=== PATIENT | female | born 1975 | race Caucasian/White ===

== ENCOUNTER 2017-11-17 11:54 | Emergency (ER) | payer OTHER ==
[~2017-11-17] VITALS: Ht 170.2 cm; Wt 61.2 kg
[2017-11-17 12:00] VITALS: BP 133/82
--- NOTE | 2017-11-17 12:30 | NUR ---
CALLED TO ROOM IN, NO ANSWER
--- NOTE | 2017-11-17 13:00 | NUR ---
CALLED TO ROOM IN, NO ANSWER
--- NOTE | 2017-11-17 13:25 | NUR ---
CALLED TO ROOM IN, NO ANSWER
== END 2017-11-17 15:23 | disposition left against medical advice (07) ==
LOC: ER 12:00
DX: Z53.21 Procedure and treatment not carried out due to patient leaving prior to being seen by health care provider (principal)
CPT/HCPCS: A4606; Z7610

== ENCOUNTER 2018-04-20 23:30 | Emergency (ER) | payer OTHER ==
--- NOTE | 2018-04-21 00:39 | NUR ---
CALLED FOR TRIAGE; NOT IN LOBBY OR OUTSIDE
--- NOTE | 2018-04-21 00:52 | NUR ---
CALLED AGAIN; NO ANSWER
--- NOTE | 2018-04-21 00:53 | NUR ---
INFORMED BY ADMITTING "PT LEFT"
== END 2018-04-21 00:56 | disposition left against medical advice (07) ==
LOC: ER 23:32
DX: Z53.21 Procedure and treatment not carried out due to patient leaving prior to being seen by health care provider (principal); R06.02 Shortness of breath

== ENCOUNTER 2018-07-10 12:53 | Emergency (ER) | payer OTHER ==
[~2018-07-10] VITALS: Ht 170.2 cm; Wt 56.3 kg
--- NOTE | 2018-07-10 13:00 | NUR ---
PT BIB SELF C/O SORETHROAT x 2 DAYS, PT IS AAOX4, NOT IN RESPIRATORY DISTRESS, V/S STABLE, KEPT RESTED AND COMFORTABLE, WILL CONTINUE TO MONITOR.
--- NOTE | 2018-07-10 13:25 | NUR ---
SEEN AND EXAMINED BY KERI ALFREDO
--- NOTE | 2018-07-10 13:40 | NUR ---
IV LINE ESTABLISHED, LABS DRAWNED AND SENT TO LAB. RAPID STREP OBTAINED AND SENT TO LAB. WAITING RESULTS.
[2018-07-10 13:41] LABS: BASOPHILS # (AUTO) 0.1 /CMM (0.0-0.2); BASOPHILS % (AUTO) 0.6 % (0.0-2.0); EOSINOPHILS % (AUTO) 1.1 % (0.0-6.0); HEMATOCRIT 27 % (33-45); HEMOGLOBIN 7.8 g/dL (11.5-14.8); LYMPHOCYTES # (AUTO) 2.4 /CMM (0.8-4.8); LYMPHOCYTES % (AUTO) 18.1 % (20.0-44.0); MEAN CORPUSCULAR HGB CONC 30 g/dl (31.0-36.0); MEAN CORPUSCULAR VOLUME 64 fL (82-100); MONOCYTES # (AUTO) 1.4 /CMM (0.1-1.30); MONOCYTES % (AUTO) 10.6 % (2.0-12.0); NEUTROPHILS # (AUTO) 9.4 /CMM (1.8-8.9); NEUTROPHILS % (AUTO) 69.6 % (43.0-81.0); PLATELET COUNT (AUTO) 477 /CMM (150-450); RED BLOOD CELL COUNT(AUTO) 4.16 MIL/uL (4.0-5.2); WHITE BLOOD COUNT (AUTO) 13.5 K/uL (4.3-11.0)
[2018-07-10] MEDS: IV NS 0.9% 1,000 ML BAG IV ONE (13:42)
[2018-07-10 13:50] LABS: CALCIUM, SERUM 8.2 mg/dL (8.5-10.1); CREATININE 0.9 mg/dL (0.6-1.3); POTASSIUM 3.7 mmol/L (3.5-5.1)
--- NOTE | 2018-07-10 13:54 | NUR ---
URINAL GIVEN BUT UNABLE TO PROVIDE URINE SPECIMEN.
[2018-07-10 14:05] LABS: BAND % (MANUAL) 2 % (0.0-5.0); LYMPHOCYTES % (MANUAL) 19 % (16-48); NEUTROPHILS % (MANUAL) 72 (42-76)
[2018-07-10 14:06] LABS: EOSINOPHILS % (MANUAL) 2 % (0-4); MONOCYTES % (MANUAL) 5 % (0-11.0)
[2018-07-10 14:14] LABS: MONOTEST NEGATIVE (NEGATIVE)
--- NOTE | 2018-07-10 14:17 | NUR ---
URINE SPECIMEN COLLECTED AND SENT TO LAB.
--- NOTE | 2018-07-10 14:20 | NUR ---
PT IS WHEELED TO CT SCAN VIA [facility].
[2018-07-10] MEDS ORDERED: IOHEXOL-300 100 ML VIAL IV ONE (14:24)
[2018-07-10] MEDS ORDERED: CT SWABBABLE VALVE TRANS SET 1 EA INFUS.SET MC ONE (14:24)
[2018-07-10] MEDS: KETOROLAC TROMETHAMINE INJ 30 MG/ML VIAL IV ONE (15:00)
[2018-07-10] MEDS ORDERED: KETOROLAC TROMETHAMINE INJ 30 MG/ML VIAL ONE (15:01)
[2018-07-10] MEDS ORDERED: DEXAMETHASONE SOD PHOSPHATE 10 MG/ML VIAL ONE (15:46)
[2018-07-10] MEDS ORDERED: PENICILLIN G BENZATHINE 2.4 MMU/4 ML ML IM ONE (15:46)
[2018-07-10] MEDS: DEXAMETHASONE SOD PHOSPHATE 10 MG/ML VIAL IM ONE (15:57)
[2018-07-10] MEDS: PENICILLIN G BENZATHINE 2.4 MMU/4 ML ML IM ONE (15:57)
--- NOTE | 2018-07-10 16:04 | NUR ---
IV removed. Catheter intact and site benign. Pressure and 4x4 applied to site. No bleeding noted.Patient discharged to home in stable condition. Written and verbal after care instructions given. Patient verbalizes understanding of instruction.
[2018-07-10 16:08] VITALS: BP 118/71
== END 2018-07-10 16:10 | disposition home or self-care (01) ==
LOC: ER 12:55
DX: J03.90 Acute tonsillitis, unspecified (principal); R11.2 Nausea with vomiting, unspecified; R59.1 Generalized enlarged lymph nodes; F17.200 Nicotine dependence, unspecified, uncomplicated; Z60.2 Problems related to living alone
CPT/HCPCS: 36415; 70491; 80048; 84703; 85025; 86308; 87070; 87081; 87110; 87880; 96361; 96372 ×2; 96374; 99284; J0558; J1100; J1885; J7030; Q9967; 86403-TC

== ENCOUNTER 2018-09-04 18:08 | Emergency (ER) | payer OTHER ==
[~2018-09-04] VITALS: Ht 170.2 cm; Wt 59.0 kg
[2018-09-04 18:08] VITALS: BP 126/81
--- NOTE | 2018-09-04 18:22 | NUR ---
"I want my hemoglobin check" patient had blood transfusion a week ago at [facility] d/t low Hgb=6.8 and 1 unit of RBC was given, denies SOB. Patient a/ox3, breathing even and unlabored, no sob noted. MD at bedside for eval.
[2018-09-04 18:32] LABS: BASOPHILS # (AUTO) 0.1 /CMM (0.0-0.2); BASOPHILS % (AUTO) 0.8 % (0.0-2.0); EOSINOPHILS % (AUTO) 1.2 % (0.0-6.0); HEMATOCRIT 38 % (33-45); HEMOGLOBIN 11.8 g/dL (11.5-14.8); LYMPHOCYTES # (AUTO) 2.5 /CMM (0.8-4.8); LYMPHOCYTES % (AUTO) 31.5 % (20.0-44.0); MEAN CORPUSCULAR HGB CONC 31 g/dl (31.0-36.0); MEAN CORPUSCULAR VOLUME 73 fL (82-100); MONOCYTES # (AUTO) 0.6 /CMM (0.1-1.30); MONOCYTES % (AUTO) 8.2 % (2.0-12.0); NEUTROPHILS # (AUTO) 4.6 /CMM (1.8-8.9); NEUTROPHILS % (AUTO) 58.3 % (43.0-81.0); PLATELET COUNT (AUTO) 368 /CMM (150-450); RED BLOOD CELL COUNT(AUTO) 5.16 MIL/uL (4.0-5.2); WHITE BLOOD COUNT (AUTO) 7.9 K/uL (4.3-11.0)
[2018-09-04 18:41] LABS: CALCIUM, SERUM 8.8 mg/dL (8.5-10.1); CREATININE 0.8 mg/dL (0.6-1.3); POTASSIUM 3.8 mmol/L (3.5-5.1)
== END 2018-09-04 18:53 | disposition home or self-care (01) ==
LOC: ER 18:11
DX: D64.9 Anemia, unspecified (principal); F17.200 Nicotine dependence, unspecified, uncomplicated; Z88.1 Allergy status to other antibiotic agents; Z88.8 Allergy status to other drugs, medicaments and biological substances; Z60.2 Problems related to living alone
CPT/HCPCS: 36415; 80048-TC; 85025-TC

== ENCOUNTER 2018-12-16 09:57 | Emergency (ER) | payer OTHER ==
--- NOTE | 2018-12-16 10:03 | NUR ---
CALLED PT TO BE TRIAGED, NO ANSWER
--- NOTE | 2018-12-16 10:07 | NUR ---
CALLED FOR TRIAGE WITH NO ANSWER.
== END 2018-12-16 10:14 | disposition left against medical advice (07) ==
LOC: ER 09:58
DX: Z53.21 Procedure and treatment not carried out due to patient leaving prior to being seen by health care provider (principal)

== ENCOUNTER 2019-04-18 16:34 | Emergency (ER) | payer OTHER ==
[~2019-04-18] VITALS: Ht 165.1 cm; Wt 65.8 kg
[2019-04-18 17:31] VITALS: BP 145/84
[2019-04-18 18:00] LABS: BASOPHILS # (AUTO) 0.1 /CMM (0.0-0.2); BASOPHILS % (AUTO) 0.8 % (0.0-2.0); EOSINOPHILS % (AUTO) 1.1 % (0.0-6.0); HEMATOCRIT 34 % (33-45); HEMOGLOBIN 10.6 g/dL (11.5-14.8); LYMPHOCYTES # (AUTO) 2.1 /CMM (0.8-4.8); LYMPHOCYTES % (AUTO) 21.5 % (20.0-44.0); MEAN CORPUSCULAR HGB CONC 32 g/dl (31.0-36.0); MEAN CORPUSCULAR VOLUME 75 fL (82-100); MONOCYTES % (AUTO) 10.4 % (2.0-12.0); NEUTROPHILS # (AUTO) 6.4 /CMM (1.8-8.9); NEUTROPHILS % (AUTO) 66.2 % (43.0-81.0); PLATELET COUNT (AUTO) 345 /CMM (150-450); RED BLOOD CELL COUNT(AUTO) 4.45 MIL/uL (4.0-5.2); WHITE BLOOD COUNT (AUTO) 9.6 K/uL (4.3-11.0)
[2019-04-18 18:58] LABS: CALCIUM, SERUM 8.7 mg/dL (8.5-10.1); CREATININE 0.8 mg/dL (0.6-1.3); POTASSIUM 3.7 mmol/L (3.5-5.1)
--- NOTE | 2019-04-18 19:29 | NUR ---
Patient discharged to home in stable condition. Written and verbal after care instructions given. Patient verbalizes understanding of instruction.
== END 2019-04-18 19:30 | disposition home or self-care (01) ==
LOC: ER 16:37
DX: D64.9 Anemia, unspecified (principal); F17.200 Nicotine dependence, unspecified, uncomplicated; Z60.2 Problems related to living alone; Z88.8 Allergy status to other drugs, medicaments and biological substances
CPT/HCPCS: 36415; 80048-TC; 85025-TC

== ENCOUNTER 2019-04-29 13:06 | Emergency (ER) | payer OTHER ==
[~2019-04-29] VITALS: Ht 170.2 cm; Wt 61.2 kg
--- NOTE | 2019-04-29 13:30 | NUR ---
per patient boss wants her to check her HGB level, sob x 5 years, 100% on room air. on room air,breathing evenly and unlabored. kept comfortable, will continue to monitor accordingly.
[2019-04-29 13:57] LABS: BASOPHILS # (AUTO) 0.1 /CMM (0.0-0.2); BASOPHILS % (AUTO) 0.7 % (0.0-2.0); EOSINOPHILS % (AUTO) 0.7 % (0.0-6.0); HEMATOCRIT 30 % (33-45); HEMOGLOBIN 9.7 g/dL (11.5-14.8); LYMPHOCYTES # (AUTO) 2.3 /CMM (0.8-4.8); LYMPHOCYTES % (AUTO) 31.3 % (20.0-44.0); MEAN CORPUSCULAR HGB CONC 32 g/dl (31.0-36.0); MEAN CORPUSCULAR VOLUME 75 fL (82-100); MONOCYTES # (AUTO) 0.8 /CMM (0.1-1.30); MONOCYTES % (AUTO) 11.3 % (2.0-12.0); NEUTROPHILS # (AUTO) 4.2 /CMM (1.8-8.9); PLATELET COUNT (AUTO) 321 /CMM (150-450); RED BLOOD CELL COUNT(AUTO) 4.03 MIL/uL (4.0-5.2); WHITE BLOOD COUNT (AUTO) 7.5 K/uL (4.3-11.0)
[2019-04-29 13:58] LABS: CALCIUM, SERUM 9.1 mg/dL (8.5-10.1); POTASSIUM 4.3 mmol/L (3.5-5.1)
--- NOTE | 2019-04-29 14:51 | NUR ---
Patient does not wish to proceed with medical care recommended by VALERIO Diallo. Patient given information related to possible complications, up to and including , which could occur as a result of leaving the hospital at this time. Patient verbalizes understanding of risks involved due to leaving against medical advice. Patient has signed AMA form.
[2019-04-29 14:52] VITALS: BP 119/71
== END 2019-04-29 14:53 | disposition left against medical advice (07) ==
LOC: ER 13:06
DX: D64.9 Anemia, unspecified (principal); F17.210 Nicotine dependence, cigarettes, uncomplicated; Z60.2 Problems related to living alone; Z88.8 Allergy status to other drugs, medicaments and biological substances
CPT/HCPCS: 36415; 80048-TC; 83880; 84702-TC; 85025-TC

== ENCOUNTER 2024-05-30 15:11 | Emergency (ER) | payer OTHER ==
[~2024-05-30] VITALS: Ht 170.2 cm; Wt 74.8 kg
[2024-05-30 15:37] VITALS: BP 103/53; TEMP 98; O2SAT 98
== END 2024-05-30 15:41 | disposition home or self-care (01) ==
LOC: ER 15:17
DX: D64.9 Anemia, unspecified (principal); Z53.21 Procedure and treatment not carried out due to patient leaving prior to being seen by health care provider